=== PATIENT | male | born 1980 | race Caucasian/White ===

== ENCOUNTER 2016-11-27 07:34 | Emergency (ER) | payer MEDICAID ==
[~2016-11-27] VITALS: Ht 162.6 cm; Wt 75.5 kg
[~2016-11-27 07:34] MED LIST: OFLO5DRO7 LEFT EAR
[2016-11-27 07:37] VITALS: Ht 162.6 cm; Wt 75.5 kg
[2016-11-27] MEDS ORDERED: FAMOTIDINE 20 MG TAB PO ONE (08:30)
[2016-11-27] MEDS ORDERED: LIDOCAINE/MYLANTA 40 ML BTL PO ONE (08:30)
[2016-11-27] MEDS ORDERED: OMEP20CA16 PO (08:43)
--- NOTE | 2016-11-27 09:27 | ERD ---
ER Documentation Chief Complaint Date/Time DATE: 11/27/16 TIME: 09:27 Chief Complaint epigastric pain x 1 week HPI This patient is a 36-year-old male with past medical history of acid reflux presenting to the emergency department for midepigastric pain which is nonradiating. Symptoms have been ongoing intimately for 1 week. He states he feels acid ascending up the esophagus and he can taste in his mouth. Aggravating factors include eating spicy foods and fatty foods. Alleviating factors include an adta-rmb-zennvcb medication which he cannot recall the name of. He denies any significant chest pain, chest pressure, back pain, dizziness , shortness of breath, or other symptoms. ROS All systems reviewed and are negative except as per history of present illness. Medications Home Meds Active Scripts Omeprazole* (Omeprazole*) 20 Mg Capsule.dr, 20 MG PO DAILY, #30 Prov:ABDIRIZAK PEÑA PA-C 11/27/16 Ofloxacin* (Floxin* Otic) 0.3% -10 Ml Soln, 10 DROP LEFT EAR BID for 10 Days, BOTTLE Prov:KERRY GARSIA PA-C 01/27/15 Allergies Allergies: Coded Allergies: No Known Allergy (Unverified , 11/27/16) PMhx/Soc Medical and Surgical Hx: pt denies Medical Hx, pt denies Surgical Hx History of Surgery: No Anesthesia Reaction: No Hx Neurological Disorder: No Hx Respiratory Disorders: No Hx Cardiac Disorders: No Hx Psychiatric Problems: No Hx Miscellaneous Medical Probl: No Hx Alcohol Use: Yes (socially) Hx Substance Use: No Hx Tobacco Use: Yes (quitted 4 years ago) Smoking Status: Former smoker FmHx Noncontributory for chief complaint Physical Exam Vitals Vital Signs Date Time Temp Pulse Resp B/P Pulse Ox O2 Delivery O2 Flow Rate FiO2 11/27/16 07:37 98.3 97 18 134/96 98 Physical Exam Const: Nontoxic, well-appearing male in no acute distress. Head: Atraumatic Eyes: Normal Conjunctiva ENT: Normal External Ears, Nose and Mouth. Neck: Full range of motion..~ No meningismus. Resp: Clear to auscultation bilaterally Cardio: Regular rate and rhythm, no murmurs Abd: Soft, mild midepigastric tenderness palpation but no rebound tenderness or guarding, no McBurney's point tenderness, non distended. Normal bowel sounds Skin: No petechiae or rashes Back: No midline or flank tenderness Ext: No cyanosis, or edema Neur: Awake and alert Psych: Normal Mood and Affect Results 24 hrs Current Medications Medications (Trade) Dose Ordered Sig/Tamir Route PRN Reason Start Time Stop Time Status Last Admin Dose Admin Miscellaneous Medication (Gi Cocktail (2)) 40 ml ONCE ONCE PO 11/27/16 08:30 11/27/16 08:31 DC 11/27/16 08:19 Famotidine (Pepcid) 20 mg ONCE ONCE PO 11/27/16 08:30 11/27/16 08:31 DC 11/27/16 08:19 Procedures/MDM 36-year-old male presents to the emergency department for midepigastric pain and symptoms consistent with GERD. I have low suspicion for acute coronary syndrome or other emergent conditions at this time. EKG: Interpreted by attending physician, Dr. Frankie Deleon. Rate/Rhythm: Normal sinus rhythm with a rate of 72 bpm. QRS, ST, T-waves: No changes consistent w/ acute ischemia Impression: No evidence of ischemia or arrhythmia The patient's epigastric symptoms stabilized in the department after GI cocktail and p.o. Pepcid. He was feeling significantly improved on reevaluation. I did not feel that further workup was warranted at this time given the patient's symptoms resolved. He is stable for outpatient management with a prescription for omeprazole. His questions and concerns were addressed. He agreed with the discharge plan of diagnosis. He was advised to return to the department immediately with any new or worsening symptoms. I have low suspicion for pneumothorax, aortic dissection, acute coronary syndrome, sepsis, or other emergent conditions. Close follow-up with primary care physician was advised. Departure Diagnosis: Primary Impression: Epigastric pain Condition: Fair Patient Instructions: Gerd (Adult), Epigastric Pain (Uncertain Cause) Additional Instructions: No mas mejor en 2-3 huston, regresar. Mas peor en 24 horas, regresear rapidamente. Ir a doctor primario in 5-7 huston. Usar instrucciones cuando celestina medicamento. ABDIRIZAK PEÑA PA-C Nov 27, 2016 09:27
== END 2016-11-27 09:15 | disposition home or self-care (01) ==
LOC: FTE 07:34
DX: R10.13 Epigastric pain (principal); Z87.891 Personal history of nicotine dependence
CPT/HCPCS: 93005; Z7502; Z7610

== ENCOUNTER 2017-08-05 19:08 | Emergency (ER) | END 2017-08-05 23:07 | disposition home or self-care (01) ==

== ENCOUNTER 2018-03-02 07:49 | Emergency (ER) | END 2018-03-02 14:37 | disposition home or self-care (01) ==

== ENCOUNTER 2018-12-12 20:02 | Emergency (ER) | payer MEDICAID ==
[~2018-12-12] VITALS: Ht 165.1 cm; Wt 75.0 kg
[~2018-12-12 20:02] MED LIST changes: +ALBU18HF INHALATION; +AZIT250T PO; +BENZ200C68 PO; +IBUP-1542 PO; -OFLO5DRO7 LEFT EAR; +PRED20TA PO; +PROM5SYR2 PO
[2018-12-12 20:03] VITALS: Ht 165.1 cm; Wt 75.0 kg
[2018-12-12] MEDS ORDERED: predniSONE 20 MG TAB PO STA (21:14)
[2018-12-12] MEDS ORDERED: ALBUTEROL 0.5% (NEB) 2.5 MG/0.5 ML AMP INH STA (21:14)
[2018-12-12] MEDS ORDERED: IBUPROFEN 600 MG TAB PO ONE (21:30)
[2018-12-12] MEDS ORDERED: ACETAMINOPHEN 325 MG TAB PO ONE (21:30)
[2018-12-12 22:18] VITALS: BP 114/71; PULSE 88; RESP 20
--- NOTE | 2018-12-13 04:39 | ERD ---
ER Documentation Chief Complaint Chief Complaint This patient is a 38-year-old female with no significant past medical history presenting to the emergency department complaining of intermittent fever, chills, body aches, cough for 3 days. Headache patient is also had headache which she rates 8/10 in severity. He denies any neck pain, neck stiffness, ph otophobia, photophobia, or other symptoms at this time. He took NyQuil at home with some relief. ROS All systems reviewed and are negative except as per history of present illness. Medications Home Meds Active Scripts Albuterol Sulfate* (Ventolin HFA*) 18 Gm Hfa.aer.ad, 2 PUFF INHALATION Q4H, #1 INHALER Prov:ABDIRIZAK PEÑA PA-C 12/12/18 Benzonatate* (Benzonatate*) 200 Mg Capsule, 200 MG PO TID PRN for COUGH, #15 CAP Prov:ABDIRIZAK PEÑA PA-C 12/12/18 Ibuprofen* (Motrin*) 600 Mg Tab, 600 MG PO Q6, #30 TAB Prov:ABDIRIZAK PEÑA PA-C 12/12/18 Allergies Allergies: Coded Allergies: No Known Allergy (Unverified , 03/02/18) PMhx/Soc Medical and Surgical Hx: pt denies Medical Hx, pt denies Surgical Hx History of Surgery: No Anesthesia Reaction: No Hx Neurological Disorder: No Hx Respiratory Disorders: No Hx Cardiac Disorders: No Hx Psychiatric Problems: No Hx Miscellaneous Medical Probl: No Hx Alcohol Use: No Hx Substance Use: No Hx Tobacco Use: No Smoking Status: Never smoker FmHx Family History: No diabetes Physical Exam Vitals Vital Signs Date Temp Pulse Resp B/P (MAP) Pulse Ox O2 O2 Flow FiO2 Time Delivery Rate 12/12/18 99.6 88 20 114/71 95 Room Air 22:18 (85) 12/12/18 71 20 97 21 21:36 12/12/18 100.1 79 14 113/71 98 20:03 (85) Physical Exam Const: No acute distress Head: Atraumatic Eyes: Normal Conjunctiva ENT: Normal External Ears, Nose and Mouth. Mild erythema to the posterior pharynx. No exudate. Airway is patent. Neck: Full range of motion. No meningismus. Resp: Scattered inspiratory wheezing. No crackles. No respiratory distress. Cardio: Regular rate and rhythm, no murmurs Abd: Soft, non tender, non distended. Normal bowel sounds Skin: No petechiae or rashes Back: No midline or flank tenderness Ext: No cyanosis, or edema Neur: Awake and alert Psych: Normal Mood and Affect Result Diagram: 12/12/18212412/12/182124 Results 24 hrs Laboratory Tests Test 12/12/18 21:25 White Blood Count 8.9 10^3/ul Red Blood Count 4.87 10^6/ul Hemoglobin 16.0 g/dl Hematocrit 45.4 % Mean Corpuscular Volume 93.2 fl Mean Corpuscular Hemoglobin 32.9 pg Mean Corpuscular Hemoglobin Concent 35.2 g/dl Red Cell Distribution Width 11.6 % Platelet Count 286 10^3/UL Mean Platelet Volume 9.4 fl Immature Granulocytes % 0.300 % Neutrophils % 73.1 % Lymphocytes % 17.0 % Monocytes % 8.2 % Eosinophils % 1.1 % Basophils % 0.3 % Nucleated Red Blood Cells % 0.0 /100WBC Immature Granulocytes # 0.030 10^3/ul Neutrophils # 6.5 10^3/ul Lymphocytes # 1.5 10^3/ul Monocytes # 0.7 10^3/ul Eosinophils # 0.1 10^3/ul Basophils # 0.0 10^3/ul Nucleated Red Blood Cells # 0.0 10^3/ul Sodium Level 139 mmol/L Potassium Level 4.3 mmol/L Chloride Level 105 mmol/L Carbon Dioxide Level 26 mmol/L Anion Gap 8 Blood Urea Nitrogen 9 mg/dl Creatinine 0.91 mg/dl Est Glomerular Filtrat Rate mL/min > 60 mL/min Glucose Level 105 mg/dl Calcium Level 9.2 mg/dl Current Medications Medications Dose Sig/Tamir Start Time Status Last (Trade) Ordered Route PRN Stop Time Admin Dose Reason Admin Albuterol 10 mg ONCE STAT 12/12/18 DC 12/12/18 (Proventil INH 21:14 12/12/18 21:35 0.5% (Neb)) 21:15 Prednisone 60 mg ONCE STAT 12/12/18 DC 12/12/18 (Prednisone) PO 21:14 12/12/18 21:40 21:15 Ibuprofen 600 mg ONCE ONCE 12/12/18 DC 8/8/19 (Motrin) PO 21:30 12/12/18 21:41 21:31 650 mg ONCE ONCE 12/12/18 DC 12/12/18 Acetaminophen PO 21:30 12/12/18 21:42 (Tylenol 21:31 Tab) [place] [id number] Radiology Main Line: [phone] DIAGNOSTIC IMAGING REPORT Patient: SHAWN SANDOVAL : 1980 Age: 38 Sex: M MR #: [id number] DOS: 12/12/182113 Ordering MD: ABDIRIZAK PEÑA PA-C Location: [facility] Room/Bed: PROCEDURE: XR Chest. CLINICAL INDICATION: Asthma TECHNIQUE: Frontal chest x-ray was obtained. COMPARISON: None. FINDINGS: The heart is not enlarged. Mediastinum is not widened. No hilar masses seen. Lungs are clear of any infiltrates. There is no effusion or pneumothorax. The osseous structures appear normal. IMPRESSION: No evidence for active cardiopulmonary disease. .Rene Rawls MD, MD Date Time Electronically viewed and signed by .Reen Rawls MD, MD on 12/12/2018 2 1:40 .A/ CC: ABDIRIZAK PEÑA PA-C [id number] Procedures/MDM 38-year-old male presents to the emergency department with flulike symptoms. Examination did reveal some Scattered wheezing of the lungs. There is no respiratory distress. Patient's vital signs are stable and he is nontoxic and well-appearing. Pt was administered albuterol breathing treatment with improvement of his symptoms. There is No evidence to suggest bacterial pharyngitis, mastoiditis, meningitis, sepsis, acute surgical abdomen, serious bacterial infection, or other emergent process. Patient is stable and appropriate for discharge and further outpatient management with prescription for albuterol, benzonatate, ibuprofen. Patient instructed to return to the department immediately for any new or worsening or concerning symptoms. He should otherwise have follow-up with his primary care physician within the next 24 to 48 hours. I shared my medical decision making with the patient and he understands and agrees with the plan. Departure Diagnosis: Primary Impression: Flu-like symptoms Condition: Fair Patient Instructions: Influenza (Adult) [facility] Usted se valenzuela hecho un examen mdico de control que le indica que no est en mary kate condicin que requiera tratamiento urgente en el Departamento de Emergencia. Un estudio ms profundo y el tratamiento de plunkett condicin pueden esperar sin ningn riesgo hasta que usted sea atendida/o en el consultorio de plunkett mdico o mary kate c lnica. Es responsabilidad suya arreglar mary kate rosario para el seguimiento del emma. MANEJO DE CONDICIONES NO URGENTES EN EL FUTURO 1) Si usted tiene un mdico de atencin primaria: Usted debera llamar a plunkett mdico de atencin primaria antes de venir al departamento de emergencia. Despus de las horas de consultorio, plunkett doctor o plunkett asociado/a est disponible por telfono. El mdico o enfermero de francisca en el servicio telefnico puede asesorarle por nina medio para atender el problema, o emma contrario se puede programar mary kate rosario. 2) Si usted no tiene un mdico de atencin primaria: Llame al mdico o clnica de referencia que aparece abajo araceli las horas de consultorio para hacer mary kate rosario para que le vean. CLINICAS: [facility] [phone] [facility] [phone] [facility] [phone] [place] [phone] [facility] [phone] [facility]. [phone] [address] Additional Instructions: Llame al doctor MAANA y zuhair mary kate ROSARIO PARA DENTRO DE 1-2 NAVARRO.Dgale a la secretaria que nosotros le instruimos hacer esta rosario.Avise o llame si plunkett cond icin se empeora antes de la rosario. Regresa aqui si peor o no mejor. ABDIRIZAK PEÑA PA-C Dec 13, 2018 04:39
== END 2018-12-12 22:20 | disposition home or self-care (01) ==
LOC: FTE 20:02
DX: R50.9 Fever, unspecified (principal); R05 Cough; R06.2 Wheezing
CPT/HCPCS: 71045; 80048; 85025; 94644; J7512; Z7502; Z7610

== ENCOUNTER 2018-12-17 17:22 | Emergency (ER) | payer MEDICAID ==
[~2018-12-17] VITALS: Ht 167.6 cm; Wt 73.3 kg
[2018-12-17 17:31] VITALS: BP 110/72; PULSE 75; RESP 17; Ht 167.6 cm; Wt 73.3 kg
--- NOTE | 2018-12-17 18:01 | EN ---
Date/Time of Note Date/Time of Note DATE: 12/17/18 TIME: 18:00 ER Progress Note [age]DA-89-mgmq-old male with recurrent cough and wheeze despite Ventolin and Tessalon. Repeat visit. ED 2 appropriate for evaluation for nebulizer treatment and steroids. CARMINE CALI MD Dec 17, 2018 18:01
--- NOTE | 2018-12-17 18:18 | ERD ---
ER Documentation Chief Complaint Chief Complaint COUGH, BODYACHES, FEVER AT HOME X1 WEEK HPI 38-year-old male is here with cough body aches fever for 1 week. He was seen here a few days ago and given steroids and albuterol inhaler with minimal relief. Still has cough and on and off fever. No hemoptysis or unplanned weight loss. ROS All systems reviewed and are negative except as per history of present illness. Medications Home Meds Active Scripts Promethazine HCl/Codeine (Prometh-Codein 6.25-10 mg/5 ml) 5 Ml Syrup, 5 ML PO Q6, #120 Prov:YASMANY MARSHALL PA-C 12/17/18 Azithromycin* (Zithromax*) 250 Mg Tablet, 250 MG PO .ZPACK DIRECTED, #6 TAB TAKE 500 MG (2 TABS) THE FIRST DAY THEN 250 MG (1 TAB) DAYS 2-5 Prov:YASMANY MARSHALL PA-C 12/17/18 Albuterol Sulfate* (Ventolin HFA*) 18 Gm Hfa.aer.ad, 2 PUFF INHALATION Q4H, #1 INHALER Prov:ABDIRIZAK PEÑA PA-C 12/12/18 Benzonatate* (Benzonatate*) 200 Mg Capsule, 200 MG PO TID PRN for COUGH, #15 CAP Prov:ABDIRIZAK PEÑA PA-C 12/12/18 Ibuprofen* (Motrin*) 600 Mg Tab, 600 MG PO Q6, #30 TAB Prov:ABDIRIZAK PEÑA PA-C 12/12/18 Allergies Allergies: Coded Allergies: No Known Allergy (Unverified , 03/02/18) PMhx/Soc History of Surgery: No Anesthesia Reaction: No Hx Neurological Disorder: No Hx Respiratory Disorders: Yes (asthma) Hx Cardiac Disorders: No Hx Psychiatric Problems: No Hx Miscellaneous Medical Probl: No Hx Alcohol Use: No Hx Substance Use: No Hx Tobacco Use: No FmHx Family History: No diabetes Physical Exam Vitals Vital Signs Date Temp Pulse Resp B/P (MAP) Pulse Ox O2 O2 Flow FiO2 Time Delivery Rate 12/17/18 98.3 75 17 110/72 98 17:31 (85) Physical Exam INITIAL VITAL SIGNS: Reviewed by me GENERAL: Awake, alert and oriented x 4, well appearing, nontoxic, speaking in full sentences. No acute distress HEAD: Atraumatic NECK: Supple. No masses. Full range of motion. No meningismus. No midline tenderness. THROAT: No tonilar erythema or edema. No exudates. Uvula midline. No kissing to nsils. RESPIRATORY: Clear to auscultation bilaterally. Symmetric chest wall rise. No wheezing or rales. No accessory muscle use. CV: Regular rate and rhythm. No murmurs, rubs, or gallops. Procedures/MDM Patient here with cough and congestion. This is a second visit for the same complaint is gotten no better yet. Patient given prescription for a Z-Callum. Norberto oliver counseled regarding my diagnostic impression and care plan. Prior to discharge all questions answered. Pt agrees with treatment plan and understands strict return precautions. Pt is instructed to follow up with primary care provider within 24-48 hours. Precautionary instructions provided including instructions to return to the ER if not improving or for any worsening or benavides ing symptoms or concerns. Departure Diagnosis: Primary Impression: Bronchitis Condition: Stable Patient Instructions: Bronchitis, Antiobiotic Treatment (Adult) Additional Instructions: Llame al doctor JUSTA y zuhair mary kate ROSARIO PARA DENTRO DE 1-2 NAVARRO.Dgale a la secretaria que nosotros le instruimos hacer esta rosario.Avise o llame si plunkett condicin se empeora antes de la rosario. Regresa aqui si peor o no mejor. YASMANY MARSHALL PA-C Dec 17, 2018 18:18
== END 2018-12-17 18:50 | disposition home or self-care (01) ==
LOC: FTE 17:22
DX: J40 Bronchitis, not specified as acute or chronic (principal)
CPT/HCPCS: 99283